=== PATIENT | female | born 1955 | race African-American/Black ===

== ENCOUNTER 2021-05-11 19:43 | Inpatient (IN) | payer MEDICARE, MEDICAID ==
[~2021-05-11] VITALS: Ht 162.6 cm; Wt 68.1 kg
[2021-05-11] MEDS ORDERED: GLUCAGON HYDROCHLORIDE (RDNA) 1 MG VIAL IV ONE ×2 (20:00→22:30)
[2021-05-11] MEDS ORDERED: ALUM & MAG HYDROX-SIMETH LIQ(MAALOX) 30 ML PO ONE (21:15)
[2021-05-11] MEDS ORDERED: IOHEXOL 300 MG/ML 100ML BOTTLE IJ ONE (21:41)
[2021-05-11 22:20] LABS: Basophils # (auto) 0 10 ^3/uL (0-0.2); Basophils % (auto) 0.3 % (0.0-2.0); Eosinophils # (auto) 0.1 10 ^3/uL (0-0.8); Eosinophils % (auto) 0.5 % (0.0-7.0); Hematocrit 44.7 % (36.0-46.0); Hemoglobin 14.3 g/dL (12.2-16.2); Lymphocytes # (auto) 1.4 10 ^3/uL (0.4-5.4); Lymphocytes % (auto) 10.1 % (10.0-50.0); Mean Corpuscular Hemoglobin 27.4 pg (28.0-32.0); Mean Corpuscular Hgb Conc. 31.9 g/dL (32.0-36.0); Monocytes # (auto) 1.1 10 ^3/uL (0-1.3); Monocytes % (auto) 8.4 % (0.0-12.0); Neutrophils # (auto) 10.9 10 ^3/uL (1.6-8.6); Neutrophils % (auto) 80.7 % (37.0-80.0); Red Cell Distribution Width 14.7 % (11.8-14.3); White Blood Cell 13.5 10^3/uL (4.4-10.8)
[2021-05-11] MEDS ORDERED: PANTOPRAZOLE 40 MG/10 ML VIAL INJ IV ONE (22:30)
[2021-05-11 22:37] LABS: BUN/Creatinine Ratio 21.9; Calcium 10.6 mg/dL (8.5-10.1); Potassium 3.3 mmol/L (3.5-5.1)
[2021-05-12] MEDS ORDERED: SOD CHL 0.9%/ KCL 20MEQ 1,000 ML IV ONE (01:15)
[2021-05-12] MEDS ORDERED: ONDANSETRON HCL 4 MG/2 ML VIAL IV PRN (01:15)
[2021-05-12] MEDS ORDERED: LIDOCAINE VISCOUS 2% 15ML UD ONE (08:51)
[2021-05-12] MEDS ORDERED: diphenhdrAMINE HCL 50 MG/1 ML VL ONE (08:52)
[2021-05-12] MEDS: PANTOPRAZOLE 40 MG/10 ML VIAL INJ IV SCH (10:48)
[2021-05-12] MEDS: fentaNYL CITRATE 100 MCG/2 ML VL ONE ×2 (13:22→13:25)
[2021-05-12] MEDS: MIDAZOLAM HCL 5 MG/ML-1ML VIAL ONE ×2 (13:22→13:25)
[2021-05-12 14:41] LABS: Urine Bacteria MANY /hpf (None Seen); Urine Blood 1+ /uL (Negative); Urine Mucus FEW (None Seen); Urine Specific Gravity 1.018 (1.001-1.035); Urine WBC 1 /hpf (0 - 5)
[2021-05-12] MEDS: D5W/SOD CHLO 0.9% 1,000 ML IV SCH (14:42)
[2021-05-12] MEDS: SUCRALFATE 1 GM/10 ML ORAL SUSP PO SCH ×2 (17:00→22:29)
[2021-05-12] MEDS ORDERED: PNEUMOCOCCAL VACC POLYS 25 MCG/0.5 ML VIAL IM ONE (18:00)
[2021-05-12] MEDS ORDERED: INFLUENZA QUAD 2021-2022 0.5 ML SYRG IM ONE (18:00)
[2021-05-12 19:00] VITALS: BP 140/82
[2021-05-12 22:00] VITALS: BP 125/65
[2021-05-13 05:00] VITALS: BP 109/67
[2021-05-13] MEDS: SUCRALFATE 1 GM/10 ML ORAL SUSP PO SCH ×4 (06:56→21:48)
[2021-05-13 09:00] VITALS: BP 119/63
[2021-05-13] MEDS: D5W/SOD CHLO 0.9% 1,000 ML IV SCH ×2 (09:30→21:49)
[2021-05-13] MEDS: PANTOPRAZOLE 40 MG/10 ML VIAL INJ IV SCH (10:00)
[2021-05-13 13:00] VITALS: BP 129/72
[2021-05-13 16:37] VITALS: BP 134/74
[2021-05-13 16:50] VITALS: BP 129/72
[2021-05-13 20:00] VITALS: BP 127/71
[2021-05-14] MEDS: SUCRALFATE 1 GM/10 ML ORAL SUSP PO SCH ×2 (06:00→12:30)
[2021-05-14 09:00] VITALS: BP 137/72
[2021-05-14] MEDS: PANTOPRAZOLE 40 MG/10 ML VIAL INJ IV SCH (09:03)
[2021-05-14 13:00] VITALS: BP 117/58
== END 2021-05-14 17:21 | disposition home or self-care (01) | DRG 394 ==
LOC: ER 19:43 → EDBD 19:43 → OVERFLOW 05-12 01:11 → TELE-EAST 05-12 17:18 → CENTRAL 05-12 19:30
PROVIDERS: ADMIT Nurse Practitioner; ATTEND Internal Medicine Nephrology
PROC: 0DB88ZX Excision of Small Intestine, Via Natural or Artificial Opening Endoscopic, Diagnostic (ICD-10-PCS; 2021-05-12)
PROC: 0DB68ZX Excision of Stomach, Via Natural or Artificial Opening Endoscopic, Diagnostic (ICD-10-PCS; principal; 2021-05-12 13:19)
DX: T18.128A Food in esophagus causing other injury, initial encounter (principal); N17.9 Acute kidney failure, unspecified; E87.6 Hypokalemia; K44.9 Diaphragmatic hernia without obstruction or gangrene; R13.12 Dysphagia, oropharyngeal phase; K29.80 Duodenitis without bleeding; K29.70 Gastritis, unspecified, without bleeding; K29.90 Gastroduodenitis, unspecified, without bleeding; R13.14 Dysphagia, pharyngoesophageal phase; N18.9 Chronic kidney disease, unspecified; I12.9 Hypertensive chronic kidney disease with stage 1 through stage 4 chronic kidney disease, or unspecified chronic kidney disease; K22.2 Esophageal obstruction; Z20.822 Contact with and (suspected) exposure to COVID-19; X58.XXXA Exposure to other specified factors, initial encounter; Y93.89 Activity, other specified; Y92.89 Other specified places as the place of occurrence of the external cause; Y99.8 Other external cause status
CPT/HCPCS: 36415; 70490; 80048; 81001; 83605; 83690; 85025; 87426; 92610; 96361; 96374; 96375; 96376; 99291; C9113; G0378; J2250; J2405; J7042